=== PATIENT | male | born 1950 | race Caucasian/White ===

== ENCOUNTER 2017-05-03 04:25 | Emergency (ER) | payer OTHER ==
[~2017-05-03] VITALS: Ht 172.7 cm; Wt 88.5 kg
--- NOTE | 2017-05-03 04:25 | NUR ---
PT TANYA ASKEW PD, PREBOOK. TAKEN TO OVERFLOW
[2017-05-03] MEDS ORDERED: ACETAMINOPHEN EXTRA STRENGTH 500 MG TAB PO ONE (04:35)
[2017-05-03] MEDS ORDERED: LORazepam 0.5 MG TAB PO ONE (04:35)
[2017-05-03 04:37] VITALS: BP 135/90
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
[2017-05-03 05:33] VITALS: BP 135/90
--- NOTE | 2017-05-03 05:33 | NUR ---
Patient discharged with v/s stable. Written and verbal after care instructions given and explained. Patient alert, oriented and verbalized understanding of instructions. Ambulatory with steady gait. All questions addressed prior to discharge. ID band removed. Patient advised to follow up with PMD. Rx of TYLENOL 500 MG given. Patient educated on indication of medication including possible reaction and side effects. Opportunity to ask questions provided and answered.
--- NOTE | 2017-05-03 05:33 | NUR ---
PATIENT BIB [employer]. PATIENT EXAMINED BY DR. CRUZ. PATIENT MEDICALLY CLEARED AND RELEASED IN CUSTODY IN STABLE CONDITION. ORIGINAL PRE-BOOK FORM GIVEN TO OFFICER RAFFI.
== END 2017-05-03 05:33 ==
LOC: MED 04:25
DX: S62.610A Displaced fracture of proximal phalanx of right index finger, initial encounter for closed fracture (principal); I10 Essential (primary) hypertension; Z95.1 Presence of aortocoronary bypass graft; V43.92XA Unspecified car occupant injured in collision with other type car in traffic accident, initial encounter; Y93.89 Activity, other specified; Y92.488 Other paved roadways as the place of occurrence of the external cause; Y99.8 Other external cause status
CPT/HCPCS: 29130; 73140; 99284; Q0092